=== PATIENT | female | born 1990 | race Caucasian/White ===

== ENCOUNTER 2019-11-05 11:29 | Outpatient (CLI) | payer OTHER ==
[~2019-11-05] VITALS: Ht 157.5 cm; Wt 65.0 kg
[2019-11-05 11:29] VITALS: BP 123/71; PULSE 57; TEMP 97.9
[2019-11-05 12:00] VITALS: BP 123/71; PULSE 57; TEMP 97.9
[2019-11-05] MEDS ORDERED: PRENATAL (12:15)
[2019-11-05 12:30] VITALS: BP 108/68; PULSE 55
== END 2019-11-05 12:40 | disposition home or self-care (01) ==
LOC: LDR 11:29 → LDRO 11:29
DX: O46.93 Antepartum hemorrhage, unspecified, third trimester (principal); Z3A.39 39 weeks gestation of pregnancy
CPT/HCPCS: OP

== ENCOUNTER 2019-11-15 07:11 | Inpatient (IN) | payer OTHER ==
[~2019-11-15] VITALS: Ht 157.5 cm; Wt 67.3 kg
[2019-11-15] VITALS (66 sets, daily range): BP systolic 69–156; BP diastolic 56–99; PULSE 41–75; TEMP 97.8–98.7
[~2019-11-15 07:11] MED LIST: PRENATAL
--- NOTE | 2019-11-15 07:20 | NUR ---
Pt arrives on unit ambulatory with spouse for IOL. Changed into clean gown. EMF and toco applied. VSS. Denies regular ctx, LOF, vaginal bleeding and reports GFM. Admission assessment completed. Consents signed. Pt updated on POC. Bed locked in low position. Call light within reach. 1238-Provider on unit for AROM. Clear fluid noted. SVe 2/80/-2. Orders to increase pitocin.
[2019-11-15 08:39] LABS: BASO % 0.4 % (0.0-2.0); EOS # 0.1 (0.0-0.7); EOS % 1.2 % (0-4.0); GRAN # 5.9 (1.4-6.5); GRAN % 70.7 % (42.2-75.2); HEMATOCRIT 37.1 % (37.0-47.0); HEMOGLOBIN 12.9 g/dl (12.5-16.0); LYMPH # 1.7 (1.2-3.4); LYMPH % 19.9 % (20.0-51.0); MEAN CELL VOLUME 93 fl (80.0-100.0); MEAN CORPUSCULAR HEMOGLOBIN 32 pg (27.0-31.0); MEAN CORPUSCULAR HGB CONC 35 g/dl (33.0-37.0); MEAN PLATELET VOLUME 12.9 fl (7.4-10.4); MONO # 0.6 (0.1-0.6); MONO % 7.1 % (1.7-9.3); PLATELET COUNT 172 K/mm3 (130-400); RED BLOOD COUNT 3.98 M/mm3 (4.10-5.30); REDCELL DISTRIBUTION WIDTH-CV 13.1 % (11.5-14.5)
--- NOTE | 2019-11-15 13:58 | NUR ---
Difficulty tracing ctx pattern. Pt independently moving from bed, to birthing ball to standing. 1405-FHR descends from 130 baseline to 100s over approximately 30 seconds and returns spontaneously to 130 baseline with moderate variability. RN at bedside adjusting toco.
--- NOTE | 2019-11-15 15:43 | NUR ---
Difficulty tracing FHR due to maternal position. RN at bedside adjusting monitors. FHR audible.
--- NOTE | 2019-11-15 18:25 | NUR ---
1826- Dr. Magallon at the bedside to assist with IUPC replacement. 1828- SVE by Dr. Magallon . FHR decel 90-100bpm. 183- Repositioned pt with left wedge. 183- FHR remains 100bpm. Repositioned pt to left lateral. 183- Repositioned pt to right lateral. 1832- Dr. Magallon remains at the bedside. Pitocin infusion stopped. 183- O2 started at 10L via face mask. 183- FHR slow return to 110bpm with moderate variability. Repositioned pt to left lateral position. 184- O2 off. FHR with return to baseline 125bpm. 185- Pitocin restarted at 20ml/hr. 1855- Spoke with Dr. Sanchez for an update on pt's progress. FHR tracing with decel, SVE per Dr. Magallon and ctx pattern reviewed. No new orders at this time. Will continue to monitor.
--- NOTE | 2019-11-15 21:10 | NUR ---
Roles on the unit. FHR tracing and ctx pattern reviewed.
--- NOTE | 2019-11-15 21:15 | NUR ---
2114- Roles at the bedside. SVE per Roles with no change 3cm. Options reviewed with pt and at the bedside. 2119- Pt requesting time to discuss with . 2136- C/S decided. Pitocin infusion stopped. 2149- Pt off EFM and toco monitors to the OR.
[2019-11-16] VITALS (9 sets, daily range): BP systolic 96–138; BP diastolic 58–92; PULSE 40–67; TEMP 97.8–98.7
--- NOTE | 2019-11-16 09:03 | NUR ---
Initial visit; Parents thanked Recruiter for offering congratulations and God's blessings for the of their daughter. Recruiter thanked family for choosing [facility].
[2019-11-16 09:10] LABS: HEMATOCRIT 34.8 % (37.0-47.0)
[2019-11-17 07:06] VITALS: BP 102/62; PULSE 50; TEMP 97.8
[2019-11-17] MEDS ORDERED: IBU600 MG PO (09:04)
[2019-11-17] MEDS ORDERED: PERCOCET 325 MG1 TA2 PO (09:04)
== END 2019-11-17 14:31 | disposition home or self-care (01) | DRG 788 ==
LOC: LDR 07:11 → OB 07:11
PROVIDERS: ADMIT Obstetrics & Gynecology
PROC: 10D00Z1 Extraction of Products of Conception, Low, Open Approach (ICD-10-PCS; principal; 2019-11-15)
DX: O62.0 Primary inadequate contractions (principal); Z3A.41 41 weeks gestation of pregnancy; Z37.0 Single live birth
CPT/HCPCS: J0690; J1885; J2210; J2370; J2405; J2590; J7120

== ENCOUNTER → 2019-11-24 | Outpatient (CLI) | payer OTHER ==
[~2019-11-24] MED LIST changes: +IBU600 MG PO; +PERCOCET 325 MG1 TA2 PO
--- NOTE | 2019-11-24 14:50 | NUR ---
Pt, Andrei Handy, presents for outpatient consult with 9 day old baby girl, Steve Handy. They are accompanied by pt's spouse, Krysten. Steve was born by c/section on [birth year] and weighed 7#4.1oz (3290 gms). This family is being seen because Steve had an 11% weight loss at Dr. Tucker's office at six days of age. They were provided telephone instructions by this LC to use the 3-step plan including breastfeed/supplement/pump. After two days of this Steve had a three ounce gain over 2 days. They had a mix of EBM and formula for her supplement. Today Steve weighs 6#9.6oz (2994 gms), 9% loss from . Pt reports feeding Steve 6 times by breast in the last 24 hours and 4 times by bottle. Steve has had about 10oz supplement in the last 24 hours. Pt has sore nipples and decided to give them a break from every time. Pt collects 30-45ml if Steve has not nursed prior and 15 ml if Steve does nurse first. After Steve gained 74ml (2.6oz). She repsonded well to breast massage and compression when her effort declined. Pt also has cracks on the face of each nipple, she has an RX for Frost's Nipple Cream available. LC notes mild tongue tie with oral exam. Infant latches better with LC's assist discomfort lessened. LC notes infant's tongue across gum line when nursing. Pt's nipple shape after nursing was improved. LC provided information about herbal supplements and power pumping to increase milk supply. POC: Continue , followed by pumping and use of herbal supplements as discussed to improve milk supply. Supplement Steve only as needed. F/U: Anticipate at 1400 to evaluate weight and milk supply. Questions invited and answered.
== END ==
LOC: LAC 13:47
DX: Z39.1 Encounter for care and examination of lactating mother (principal); Z71.9 Counseling, unspecified

== ENCOUNTER → 2019-11-30 | Outpatient (CLI) | payer OTHER ==
--- NOTE | 2019-11-30 15:17 | NUR ---
Pt, Andrei Handy, presents for follow up consult with 15 day old baby girl, Steve Handy. They were seen six days ago because Steve was 11% below weight. Steve was born on [birth year] and weighed 7$4.1oz (3291 gms). Last consult she weighed 6# 9.6 oz (2994 gms). Steve has been nursing q 2-3 hours, getting supplemented 1-2oz EBM per day. Pt has continued to pump after most feedings collecting 0.5-1oz. Pt continues to have sore nipples but they are improving, the wounds are healing; pt uses Frost's Nipple Cream. The abrasions are consistent with where the 's tongue rubs and 's tongue noted to go in and out with the feeding process. LC does suck evaluation with gloved finger and notes tongue motion with sucking. Pt assisted/advised on football, states the pain is essentially gone with this different angle. After nursing infant has a weight gain of 2.1oz. Because of type on nipple wound and tongue motion and previously noted mild tongue tie, pt is provided list of providers that can evaluate for tongue tie and treat if deemed necessary. POC: Continue ad merline, supplement prn, pump prn. Use alternate hold for nipple comfort. Consider evaluation for tongue tie. F/U: As scheduled for well baby check with Dr. Tucker, prn. Questions invited and answered.
== END ==
LOC: LAC 14:23 → OLC 14:27 → LAC 14:35
DX: Z39.1 Encounter for care and examination of lactating mother (principal); Z71.89 Other specified counseling